=== PATIENT | male | born 1980 | race Caucasian/White ===

== ENCOUNTER → 2019-12-19 12:54 | Outpatient (CLI) | payer BC, SELFPAY ==
--- NOTE | ~2019-12-19 | XR_ITS ---
EXAMINATION: XR ankle LT min 3V DATE: 12/19/2019 13:15 INDICATION: Left ankle pain and swelling with limited range of motion post crush injury one day prior . TECHNIQUE: Anteroposterior, oblique, mortise, and lateral views of the left ankle were obtained. COMPARISON: None. FINDINGS: Alignment is normal. No fracture. Joint spaces are well maintained. Tiny spur and minimal enthesopat hic ossification at the calcaneal insertion of the distal Achilles tendon. Calcaneal No ankle joint e ffusion. Diffuse soft tissue swelling about the ankle. IMPRESSION: 1. No acute osseous abnormality. Reviewed, dictated and finalized at location A.
== END ==
PROVIDERS: Visit Provider Emergency Medicine
DX: M25.572 Pain in left ankle and joints of left foot (principal)
CPT/HCPCS: 73610